=== PATIENT | male | born 1965 | race Two or more races ===

== ENCOUNTER 2020-08-31 19:08 | Emergency (ER) | payer OTHER ==
[~2020-08-31] VITALS: Ht 175.3 cm; Wt 83.0 kg
== END 2020-08-31 21:48 | disposition home or self-care (01) ==
LOC: ER 19:08
DX: S61.222A Laceration with foreign body of right middle finger without damage to nail, initial encounter (principal); S61.421A Laceration with foreign body of right hand, initial encounter; W54.0XXA Bitten by dog, initial encounter; Y93.89 Activity, other specified; Y92.89 Other specified places as the place of occurrence of the external cause; Y99.8 Other external cause status